=== PATIENT | female | born 1995 | race Caucasian/White ===

== ENCOUNTER 2018-01-31 20:51 | Emergency (ER) | payer BC ==
[~2018-01-31] VITALS: Ht 160 cm; Wt 89.4 kg
[~2018-01-31 20:51] MED LIST: ALLEGRA30 MG/5 ML; BIOTIN-D1 GM; EFFEXOR XR75 MG PO; FLONASE 0.05%50 MCG NASAL; HYDROXYZINE HCL25 M1 PO; MECLIZINE HCL25 M1; MULTIVITAMINS; XANAX 0.25 MG0.25 MG; ZOFRAN4 MG PO
[2018-01-31] MEDS ORDERED: FLONASE 0.05%50 MCG (21:00)
[2018-01-31 22:10] VITALS: BP 124/80
== END 2018-01-31 22:11 | disposition home or self-care (01) ==
LOC: M.ERS 20:51
DX: S93.492A Sprain of other ligament of left ankle, initial encounter (principal); F41.9 Anxiety disorder, unspecified; Z88.1 Allergy status to other antibiotic agents; Z91.013 Allergy to seafood; X50.9XXA Other and unspecified overexertion or strenuous movements or postures, initial encounter; Y93.89 Activity, other specified; Y92.89 Other specified places as the place of occurrence of the external cause; Y99.8 Other external cause status